=== PATIENT | male | born 1995 | race Caucasian/White ===

== ENCOUNTER 2019-01-21 16:33 | Emergency (ER) | payer BC ==
[~2019-01-21] VITALS: Ht 175.3 cm; Wt 83.9 kg
[2019-01-21 16:46] VITALS: BP 126/72
--- NOTE | 2019-01-21 16:47 | NUR ---
ER Nurse Note: Pt walked in c/o RT hand third digit laceration since 1639. Pt stated he was opening a can of beans with a sharp edge. Pt stated there was a lot of blood but now stopped. Pt stated his last tetnus shot was one year ago. Denies pain. Wound cleaned with normal saline. Will continue to montior.
--- NOTE | 2019-01-21 16:59 | NUR ---
ER Nurse Note: ERMD cleaned and dressed wound; tolerated well. Finger splint provided. Instructed pt not to put pressure on finger and to keep dry as long as possible. Waiting discharge paperwork.
[2019-01-21 17:05] VITALS: BP 126/72
--- NOTE | 2019-01-21 17:05 | NUR ---
ER Nurse Note: Patient seen, treated, medically cleared to be discharged per ERMD. Discharge instructions and prescriptons given with repeat verbalization by pt. Instructed pt to follow up with primary care physican within one week. Pt is aox4, on room air, with stable vital signs. ID band removed. Pt ambulatory; left with all belongings.
--- NOTE | 2019-01-21 18:54 | Emergency Room Report ---
History of Present Illness General Chief Complaint: Laceration Source: Patient Present Illness HPI Patient reports that he was opening a metal can when he lacerated the right dorsal finger Reports that initially there was significant bleeding however it appears to have been controlled denies any wrist pain denies any elbow pain Denies any chest pain He had some localized discomfort to the lacerated area Patient History Past Medical History: see triage record Reviewed Nursing Documentation: PMH: Agreed; PSxH: Agreed Nursing Documentation-PM Past Medical History: No History, Except For Review of Systems All Other Systems: negative except mentioned in HPI Physical Exam Vital Signs Date Time Temp Pulse Resp B/P (MAP) Pulse Ox O2 Delivery O2 Flow Rate FiO2 01/21/19 16:34 98.2 82 16 126/72 (90) 96 Room Air Sp02 EP Interpretation: reviewed, normal General Appearance: well appearing, no apparent distress Head: normocephalic, atraumatic Eyes: bilateral eye PERRL, bilateral eye EOMI ENT: normal pharynx Neck: supple Respiratory: no respiratory distress, no retraction Cardiovascular #1: regular rate, rhythm Musculoskeletal: other - Superficial 0.2 cm laceration over the mid dorsal middle finger no obvious ecchymosis or active bleeding Neurologic: alert, oriented x3 Skin: other - As above Lymphatic: no adenopathy Procedures Splinting Splinting : Consent: Verbal Location: Right middle finger Pre-Made Type: metal Splint: finger Pre-Proc Neuro Vasc Exam: normal Post-Proc Neuro Vasc Exam: normal Patient Tolerated: Well Complications: None Laceration/Wound Repair Laceration/Wound Repair : Consent: Verbal Wound's Depth, Shape: superficial Wound Length (cm): 0 Wound Explored: clean Wound Repaired With: Steri-strips Number of Sutures: 1 Complications: None Progress 0.2 cm superficial laceration closure with 1 Steri-Strip Medical Decision Making Diagnostic Impression: Primary Impression: Laceration ER Course Area of question is fairly superficial Steri-Strip was applied finger splint for decreasing the likelihood of secondary tear and patient stable for close outpatient follow-up Last Vital Signs Date Time Temp Pulse Resp B/P (MAP) Pulse Ox O2 Delivery O2 Flow Rate FiO2 01/21/19 17:05 98.2 82 16 126/72 96 Room Air Status: improved Disposition: HOME, SELF-CARE Condition: Improved Referrals: [facility],REFERRING (PCP) [facility] Patient Instructions: Laceration Care, Adult Additional Instructions: Patient is provided with the discharge instructions notified to follow up with primary doctor in the next 2-3 days otherwise return to the er with any worsening symptoms. Please note that this report is being documented using DRAGON technology. This can lead to erroneous entry secondary to incorrect interpretation by the dictating instrument. Paramjit Rodriguez DO Jan 21, 2019 18:54
== END 2019-01-21 17:05 | disposition home or self-care (01) ==
LOC: EMR 17:02
DX: S61.212A Laceration without foreign body of right middle finger without damage to nail, initial encounter (principal); W26.8XXA Contact with other sharp object(s), not elsewhere classified, initial encounter; Y92.9 Unspecified place or not applicable
CPT/HCPCS: 29130; 99283